=== PATIENT | female | born 1980 | race Two or more races ===

== ENCOUNTER 2019-01-05 08:31 | Outpatient (CLI) | payer OTHER ==
--- NOTE | 2019-01-06 12:52 | Ultrasound Report ---
Reason: Procedure Date: 01/05/2019 Accession Number: [id number] / [id number] Procedure: US - OB First Trimester CPT Code: FULL RESULT: EXAM: FIRST TRIMESTER OBSTETRIC ULTRASOUND (Less than 11 weeks) EXAM DATE: 01/05/2019 10:12 AM. CLINICAL HISTORY: . LMP: 11/11/2018. COMPARISONS: None. TECHNIQUE: Transabdominal and transvaginal ultrasound examination with static image documentation. CLINICAL DATES: EGA 7 weeks 6 days with LASHELL 08/18/2019 based on LMP. ASSESSMENT: Gestational Sac: Single intrauterine. Embryo: CRL (crown-rump length) 1.6 mm = 7 weeks 6 days with an LASHELL of 08/18/2019. Cardiac activity: 158 beats per minute. Yolk sac: 4.7 mm. Amniotic fluid: Not accurately assessed at this gestational age. Early placenta: Not visible at this gestational age. Other: No perigestational fluid collection demonstrated. MATERNAL STRUCTURES: Uterus: Anteverted. Unremarkable. Cervix: Closed. Right Ovary/Adnexa: The ovary measures 3.6 x 2.1 x 2.6 cm, volume 10.3 cc. Unremarkable. Left Ovary/Adnexa: The ovary measures 3.5 x 2.5 x 2.2 cm, volume 10 cc. 2.3 x 1.9 x 1.7 cm complex left ovarian cyst with debris and mild peripheral flow. No mural nodules or thickened septations. Free Fluid: None. Other: None. IMPRESSION: 1. Single viable intrauterine at EGA 7 weeks 6 days with LASHELL 08/18/2019 based on crown-rump length, which is concordant with clinical dates. 2. Assigned dating is LASHELL 08/18/2019 based on LMP. 3. No complications such as a subchorionic hemorrhage. 4. 2.3 cm complex left ovarian cyst most compatible with a corpus luteum. Otherwise, both ovaries and adnexa are normal. RADIA
== END 2019-01-05 08:32 | disposition home or self-care (01) ==
LOC: DI 08:31
PROVIDERS: ATTEND Nurse Practitioner Obstetrics & Gynecology
DX: Z32.01 Encounter for pregnancy test, result positive (principal); O34.81 Maternal care for other abnormalities of pelvic organs, first trimester; N83.292 Other ovarian cyst, left side; Z3A.01 Less than 8 weeks gestation of pregnancy
CPT/HCPCS: 76801

== ENCOUNTER 2019-01-21 08:00 | Outpatient (CLI) | payer OTHER ==
[2019-01-21 08:20] LABS: MUDS CUTOFF CONCENTRATIONS CUTOFF CONC BELOW:
[2019-01-21 08:26] LABS: BILIRUBIN,URINE NEGATIVE (NEGATIVE); GLUCOSE, URINE (UA) NEGATIVE (NEGATIVE); KETONES,URINE (UA) NEGATIVE (NEGATIVE); LEUKOCYTE ESTERASE, URINE NEGATIVE (NEGATIVE); NITRITE,URINE NEGATIVE (NEGATIVE); OCCULT BLOOD,URINE NEGATIVE (NEGATIVE); PROTEIN,URINE NEGATIVE (NEGATIVE); UROBILINOGEN,URINE 0.2 (NORMAL) E.U./dL (NORMAL)
[2019-01-21 08:27] LABS: BASOPHILS % (AUTO) 0.6 %; CLARITY,URINE CLEAR (CLEAR); EOSINOPHILS # (AUTO) 0.9 10^3/uL (0.0-0.7); EOSINOPHILS % (AUTO) 14.3 %; HGB - HEMOGLOBIN 13.3 g/dL (12.0-16.0); LYMPHOCYTES # (AUTO) 1.3 10^3/uL (1.5-3.5); LYMPHOCYTES % (AUTO) 20.9 %; MEAN CORPUSCULAR HEMOGLOBIN 30.6 pg (27.0-31.0); MEAN CORPUSCULAR HGB CONC 33.6 g/dL (32.0-36.0); MEAN CORPUSCULAR VOLUME 91.2 fL (81.0-99.0); MEAN PLATELET VOLUME 7.2 fL (7.9-10.8); MONOCYTES # (AUTO) 0.3 10^3/uL (0.0-1.0); MONOCYTES % (AUTO) 5.2 %; NEUTROPHILS # (AUTO) 3.6 10^3/uL (1.5-6.6); PLT - PLATELET COUNT 238 10^3/uL (130-450); RED BLOOD COUNT 4.36 10^6/uL (4.20-5.40); RED CELL DISTRIBUTION WIDTH 12.3 % (12.0-15.0)
[2019-01-21 08:40] LABS: AMPHETAMINE SCREEN,URINE NEGATIVE (NEGATIVE); BENZODIAZEPINES SCREEN, URINE NEGATIVE (NEGATIVE); COCAINE SCREEN URINE NEGATIVE (NEGATIVE); METHADONE SCREEN, URINE NEGATIVE (NEGATIVE); METHAMPHETAMINES SCREEN, URINE NEGATIVE (NEGATIVE); OPIATE SCREEN, URINE NEGATIVE (NEGATIVE); OXYCODONE SCREEN, URINE NEGATIVE (NEGATIVE); PROPOXYPHENE SCREEN, URINE NEGATIVE (NEGATIVE); TRICYCLIC ANTIDEPRESSANT,URINE NEGATIVE (NEGATIVE)
[2019-01-21 08:42] LABS: BACTERIA,URINE Rare /HPF (None Seen); RBC,URINE 0-5 /HPF (0-5); SQUAMOUS EPITHELIAL CELL,UR RARE Squamous (<= Few)
[2019-01-22 08:37] LABS: HEPATITIS B SURFACE ANTIGEN NON-REACTIVE (NON-REACTIVE)
[2019-01-22 13:16] LABS: HEPATITIS C ANTIBODY NON-REACTIVE (NON-REACTIVE)
[2019-01-22 13:47] LABS: HIV AG/AB 4TH GEN NON-REACTIVE (NON-REACTIVE)
== END 2019-01-21 08:01 | disposition home or self-care (01) ==
LOC: LAB 08:00
PROVIDERS: ATTEND Registered Nurse
DX: Z31.5 Encounter for procreative genetic counseling (principal); Z33.1 Pregnant state, incidental
CPT/HCPCS: 36415; 80306; 81001; 81599; 85025; 86592; 86762; 86803; 86850; 86900; 86901; 87086; 87340; 87389

== ENCOUNTER 2019-04-09 06:11 | Outpatient (CLI) | payer OTHER ==
[2019-04-09 07:17] LABS: BASOPHILS % (AUTO) 0.3 %; EOSINOPHILS # (AUTO) 0.2 10^3/uL (0.0-0.7); EOSINOPHILS % (AUTO) 3.2 %; HGB - HEMOGLOBIN 12.4 g/dL (12.0-16.0); LYMPHOCYTES # (AUTO) 1.1 10^3/uL (1.5-3.5); LYMPHOCYTES % (AUTO) 16.9 %; MEAN CORPUSCULAR HEMOGLOBIN 31.3 pg (27.0-31.0); MEAN CORPUSCULAR HGB CONC 34.1 g/dL (32.0-36.0); MEAN CORPUSCULAR VOLUME 91.9 fL (81.0-99.0); MEAN PLATELET VOLUME 9.2 fL (7.9-10.8); MONOCYTES # (AUTO) 0.5 10^3/uL (0.0-1.0); MONOCYTES % (AUTO) 7.5 %; NEUTROPHILS # (AUTO) 4.6 10^3/uL (1.5-6.6); NEUTROPHILS % (AUTO) 70.7 %; PLT - PLATELET COUNT 216 10^3/uL (130-450); RED BLOOD COUNT 3.96 10^6/uL (4.20-5.40); RED CELL DISTRIBUTION WIDTH 12.4 % (12.0-15.0); WHITE BLOOD COUNT 6.5 x10^3/uL (4.8-10.8)
[2019-04-09 07:32] LABS: ALBUMIN 3.1 g/dL (3.2-5.5); BILIRUBIN,TOTAL 0.6 mg/dL (0.2-1.0); CALCIUM 8.4 mg/dL (8.5-10.3); CREATININE 0.5 mg/dL (0.4-1.0); TOTAL PROTEIN 6.2 g/dL (6.7-8.2)
--- NOTE | 2019-04-09 11:59 | Ultrasound Report ---
Reason: RUQ pain Procedure Date: 04/09/2019 Accession Number: [id number] / [id number] Procedure: US - Abdomen Limited CPT Code: FULL RESULT: EXAM: ABDOMEN ULTRASOUND LIMITED, RUQ EXAM DATE: 04/09/2019 11:30 AM. CLINICAL HISTORY: RUQ pain. 21 weeks patient. COMPARISON: None. TECHNIQUE: Real-time scanning was performed with static images obtained. FINDINGS: Liver: The contour and echotexture are within normal limits. 12.8 cm. Main portal vein flow: Hepatopetal. Gallbladder: No stones, wall thickening, or sonographic Rodriguez's sign. Biliary System: CBD measures 4.7 mm. No intrahepatic or extrahepatic ductal dilatation. Other: There is mild ectatic right kidney without renal stone, filling defect or mass visualized. The right kidney measured 10.2 cm in length. No ascites is seen. IMPRESSION: 1. No cholelithiasis or cholecystitis. 2. Mild ectatic right renal pelvis without visualized stone or filling defect, probably secondary changes of the second trimester . RADIA
[2019-04-09 12:27] LABS: BILIRUBIN,URINE NEGATIVE (NEGATIVE); GLUCOSE, URINE (UA) NEGATIVE (NEGATIVE); KETONES,URINE (UA) NEGATIVE (NEGATIVE); LEUKOCYTE ESTERASE, URINE NEGATIVE (NEGATIVE); NITRITE,URINE NEGATIVE (NEGATIVE); OCCULT BLOOD,URINE NEGATIVE (NEGATIVE); PROTEIN,URINE NEGATIVE (NEGATIVE); UROBILINOGEN,URINE 0.2 (NORMAL) E.U./dL (NORMAL)
[2019-04-09 12:29] LABS: CLARITY,URINE CLEAR (CLEAR)
[2019-04-09] MEDS: oxyCODONE 5 MG TABLET PO ONE (12:46)
[2019-04-09 12:52] VITALS: BP 126/73
--- NOTE | 2019-04-09 14:20 | PREOP HISTORY & PHYSICAL ---
DATE OF SERVICE: 04/09/2019 Physician: Miguel Sterling MD IDENTIFICATION: Patient is a 39-year-old G1, P0 female with EDC of 18 August, making her 21.3 weeks . CHIEF COMPLAINT: Right flank pain. HISTORY OF PRESENT ILLNESS: Patient states at roughly 1 o'clock this morning, she was awakened with right-sided flank pain. She describes it as an 8-9/10. She states, with time, it has decreased to 7 /10. She states that she has been having some back pain for the last 3 days. She denies any pain or burning on urination. She denies radiation. She denies any trauma at this point. She has no histo ry of any kidney stones or kidney infections. She had a UTI roughly 5 years ago. She has had a norm al so far. PAST MEDICAL HISTORY: None. PAST SURGICAL HISTORY: None. ALLERGIES: NONE KNOWN. CURRENT MEDICATIONS: vitamins. HABITS: Patient denies use of alcohol, tobacco, street or addictive drugs, or tetrahydrocannabinol. SOCIAL HISTORY: Patient is to an active duty [place]. She works as a foundry technician. FAMILY HISTORY: Positive for father who at a young age secondary to ethanol abuse. PHYSICAL EXAMINATION GENERAL: Well-developed, well-nourished female, in a moderate to mild amount of distress. VITAL SIGNS: Temperature is 37, blood pressure 128/81, pulse was 70, respirations 16. HEENT: Pupils are equal and round. Extraocular muscles are intact. Thyroid is not palpably enlarge d. HEART: Regular rate and rhythm without murmurs. LUNGS: Lung king are clear without rales or wheezes. BACK: Patient has right flank tenderness, which duplicates the pain she is complaining of. DIAGNOSTIC DATA: Her ultrasound showed a normal gallbladder. There is some mild dilatation of the r ight kidney; however, there is no evidence of any kidney stones. CBC shows a white count of 6.5, hemoglobin was 12.4, hematocrit was 36.4, platelets were 216. Electr olytes were all within normal limits. Her urinalysis did not show any leukocytes or RBCs in the urin e. IMPRESSION AND PLAN: A 39-year-old G1, P0, female, 21.3 weeks, probable renal lithiasis versus renal colic. At this point, with negative urine as well as labs, I feel that the administration of oxycod one 5-10 mg as needed every 6 hours. She is also to strain her urine, sleep on her left-hand side to see if this does not help with her colic. 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 She is also told to return, should her symptoms become worse. TD: 04/09/2019 13:08
--- NOTE | 2019-04-10 18:03 | PROVIDER PROGRESS NOTE ---
- HPI Chief Complaint: Other (Ms Palma is a 39 yo at 21w2d who presented to the ED with chest/abd pain. She had been cleared for cardiac concerns and PE. She reports midepigastric/substernal pain rated 6/10 at rest and 8/10 when palpated. Pain starts at midepigastric area and radiates behind her right breast through to her back. Some nausea when area is palpated but no vomiting. Minimal to no improvement with GI cocktail. No CTX/VB/LOF. Endorses FM) Current : Current EDU 08/18/19 Gestation 21 Weeks and 2 Days 1 Para 0 Vital Signs Temperature 98.6 F 04/09/19 06:15 Heart Rate 70 04/09/19 06:15 Respiratory Rate 16 04/09/19 06:15 Blood Pressure 128/81 H 04/09/19 06:15 O2 Saturation 100 04/09/19 06:15 Temperature 98.4 F 04/09/19 11:27 Heart Rate 71 04/09/19 11:27 Respiratory Rate 20 04/09/19 12:51 Blood Pressure 126/73 04/09/19 12:51 O2 Saturation 98 04/09/19 12:51 - Exam GEN: NAD and no obvious discomfort CV:RRR RESP: CTAB ABD: gravid. Palpable mass that recedes with pressure above uterine fundus. Pt reports pain worsens with palpation/no change in demeanor. No tenderness in RUQ. Uterine fundus soft and non-tender. EXT: WWP, no BLE edema FHT wnl - Procedures Service Date of procedure: 04/09/19 Findings: Formal abdominal us ordered. US of gallbladder WNL. Right kidney with some dilation , but no stones noted for either. UA negative. - Plan Plan: Medicated with Oxycodone 10 mg PO. Given a strainer to strain urine. Instruct ed to [place] and sooner if the pain is not improved. Able to tolerate eating regular food after US, but does not have much appetite. Discharge instructions given. Discharged to home.
== END 2019-04-09 13:45 | disposition home or self-care (01) ==
LOC: WFO 06:11 → FBP 06:14 → WFO 13:45
PROVIDERS: ATTEND Obstetrics & Gynecology
DX: O99.89 Other specified diseases and conditions complicating pregnancy, childbirth and the puerperium (principal); N28.89 Other specified disorders of kidney and ureter; R10.13 Epigastric pain; R07.2 Precordial pain; O09.513 Supervision of elderly primigravida, third trimester; Z87.440 Personal history of urinary (tract) infections; Z3A.21 21 weeks gestation of pregnancy
CPT/HCPCS: 36415; 76705; 80053; 81003; 85025; 99213; A9270; 81001; 87086

== ENCOUNTER 2019-04-10 19:28 | Observation (INO) | payer OTHER ==
[2019-04-10 20:18] LABS: BASOPHILS % (AUTO) 0.2 %; EOSINOPHILS # (AUTO) 0.1 10^3/uL (0.0-0.7); EOSINOPHILS % (AUTO) 0.6 %; HGB - HEMOGLOBIN 12.7 g/dL (12.0-16.0); LYMPHOCYTES # (AUTO) 0.9 10^3/uL (1.5-3.5); LYMPHOCYTES % (AUTO) 8.9 %; MEAN CORPUSCULAR HEMOGLOBIN 30.5 pg (27.0-31.0); MEAN CORPUSCULAR HGB CONC 32.7 g/dL (32.0-36.0); MEAN PLATELET VOLUME 9.1 fL (7.9-10.8); MONOCYTES # (AUTO) 0.6 10^3/uL (0.0-1.0); NEUTROPHILS # (AUTO) 8.3 10^3/uL (1.5-6.6); NEUTROPHILS % (AUTO) 83.7 %; PLT - PLATELET COUNT 224 10^3/uL (130-450); RED BLOOD COUNT 4.17 10^6/uL (4.20-5.40); RED CELL DISTRIBUTION WIDTH 12.8 % (12.0-15.0)
[2019-04-10 20:21] LABS: BILIRUBIN,URINE NEGATIVE (NEGATIVE); CLARITY,URINE CLEAR (CLEAR); GLUCOSE, URINE (UA) NEGATIVE (NEGATIVE); KETONES,URINE (UA) NEGATIVE (NEGATIVE); LEUKOCYTE ESTERASE, URINE NEGATIVE (NEGATIVE); NITRITE,URINE NEGATIVE (NEGATIVE); OCCULT BLOOD,URINE LARGE (NEGATIVE); PH,URINE 6.5 PH (5.0-7.5); PROTEIN,URINE 30 mg/dL (NEGATIVE); UROBILINOGEN,URINE 0.2 (NORMAL) E.U./dL (NORMAL)
[2019-04-10 20:30] LABS: ALBUMIN 3.4 g/dL (3.2-5.5); ALBUMIN/GLOBULIN RATIO 0.9 (1.0-2.2); BILIRUBIN,TOTAL 0.8 mg/dL (0.2-1.0); CREATININE 0.6 mg/dL (0.4-1.0); TOTAL PROTEIN 7.1 g/dL (6.7-8.2)
[2019-04-10 20:32] LABS: BACTERIA,URINE None Seen /HPF (None Seen); SQUAMOUS EPITHELIAL CELL,UR RARE Squamous (<= Few)
[2019-04-10] MEDS ORDERED: fentaNYL 100 MCG/2 ML VIAL IVP SCH (21:00)
[2019-04-10] MEDS ORDERED: fentaNYL 100 MCG/2 ML VIAL ONE (21:13)
[2019-04-10] MEDS ORDERED: LACTATED RINGERS 1,000 ML IV ONE (21:20)
[2019-04-10] MEDS ORDERED: LACTATED RINGERS 1,000 ML IV STA (21:39)
[2019-04-10] MEDS ORDERED: HYDROmorphone PCA 20MG/100ML IV PRN (21:54)
[2019-04-10] MEDS ORDERED: fentaNYL 100 MCG/2 ML VIAL IVP PRN (21:59)
--- NOTE | 2019-04-11 00:16 | PREOP HISTORY & PHYSICAL ---
DATE OF SERVICE: 04/10/2019 Physician: Miguel Sterling MD IDENTIFICATION: The patient is a 39-year-old G1, P0, female whose EDC is 08/18/2019. This makes her 21 and 4 weeks gestation. CHIEF COMPLAINT: Right flank pain. HISTORY OF PRESENT ILLNESS: The patient was seen on 04/09/2019 for right flank pain. It started 1 o 'clock that morning. She was awakened suddenly. She describes the pain as 9/10. She was seen and e valuated here, at which time she was diagnosed with either a renal lithiasis or renal colic. Her uri ne was clear and had no RBCs or WBCs. The patient was sent home at that time on oxycodone for pain c ontrol. She has been taking 5-10 mg as needed for pain. The pain has continued to persist and at th is particular time has difficulty controlling her pain at home. She called the clinic at [facility], which they referred her to come to the ED here for evaluation. She has continued to have flank pain and i s unremitting at this time. PAST MEDICAL HISTORY: Renal lithiasis. PAST SURGICAL HISTORY: None. ALLERGIES: NONE KNOWN. CURRENT MEDICATIONS 1. vitamins. 2. Oxycodone. HABITS: The patient denies use of alcohol, tobacco or street or addictive drugs or tetrahydrocannabi nol. SOCIAL HISTORY: The patient is to an active duty [place]. She works as a concierge receptionist. FAMILY HISTORY: Positive for a father who secondary to ethanol abuse. PHYSICAL EXAMINATION GENERAL: Well-developed, well-nourished female. She is in moderate distress at this time. VITAL SIGNS: Normal. She is afebrile. HEENT: Pupils are equal, round. Extraocular muscles are intact. Mouth is clear. NECK: Thyroid is not palpably enlarged. HEART: Regular rate and rhythm without murmurs. LUNGS: Lung king are clear without rales or wheezes. BACK: There is persistent right flank tenderness, duplicating the pain she is complaining of, simila r to the pain she was experiencing on her visit yesterday. LABORATORY DATA: At this time, she is noted to have RBCs in the urine without WBCs. Her white count is normal, hemoglobin is normal and her electrolytes are normal. She does not show any elevation of her creatinine at this point. Currently, an ultrasound is pending. IMPRESSION 1. A 39-year-old G1, P0, female at 21.4 weeks. 2. Right renal lithiasis. PLAN: Since patient is not being able to control her pain at home, we will admit for IV pain medicat ion. We will administer IV fluids to hope increase her renal output to try and watch the kidney ston e down. Should she not be successful, the option of referring her out would be entertained. TD: 04/10/2019 21:38
--- NOTE | 2019-04-11 03:55 | Ultrasound Report ---
Reason: rt flank pain Procedure Date: 04/11/2019 Accession Number: [id number] / [id number] Procedure: US - Retroperitoneal Limited CPT Code: FULL RESULT: EXAM: RIGHT RENAL ULTRASOUND EXAM DATE: 04/11/2019 01:02 AM. CLINICAL HISTORY: Rt flank pain. COMPARISON: ABDOMEN LIMITED 04/09/2019 10:57 AM. TECHNIQUE: Real-time scanning was performed with static images obtained. FINDINGS: Right Kidney: 10.8 cm. Mild hydronephrosis. Trace amount of perinephric fluid. No mass or stone identified. Bladder: Not imaged. Other: None. IMPRESSION: 1. Mild right hydronephrosis. 2. Small amount of perinephric fluid. RADIA
[2019-04-11 08:47] LABS: BILIRUBIN,URINE NEGATIVE (NEGATIVE); GLUCOSE, URINE (UA) NEGATIVE (NEGATIVE); KETONES,URINE (UA) NEGATIVE (NEGATIVE); LEUKOCYTE ESTERASE, URINE NEGATIVE (NEGATIVE); NITRITE,URINE NEGATIVE (NEGATIVE); OCCULT BLOOD,URINE LARGE (NEGATIVE); PROTEIN,URINE NEGATIVE (NEGATIVE); UROBILINOGEN,URINE 0.2 (NORMAL) E.U./dL (NORMAL)
[2019-04-11 08:48] LABS: CLARITY,URINE CLEAR (CLEAR)
--- NOTE | 2019-04-11 08:48 | PROVIDER PROGRESS NOTE ---
Subjective - Prog Note Date Prog Note Date: 04/11/19 Prog Note Time: 08:46 - Subjective Pt reports feeling: Improved (Pain is 3/10. notes painmoving down.) Objective - Vital Signs/Intake & Output Reviewed Vital Signs: Yes Vital Signs: Vital Signs x48h Temp Pulse Resp BP Pulse Ox 04/11/19 08:43 37.0 C 87 18 106/63 96 04/11/19 05:52 16 04/11/19 04:00 18 04/11/19 03:00 16 04/11/19 02:00 16 04/11/19 01:31 37 C 80 16 122/72 97 04/11/19 01:00 16 Intake & Output: Intake & Output 04/08/19 04/09/19 04/10/19 04/11/19 23:59 23:59 23:59 23:59 Intake Total 1000 Balance 1000 - Objective General Appearance: positive: No acute distress (notes good FM) Respiratory: positive: Chest non-tender, No respiratory distress, Breath sounds nml Cardiovascular: positive: Regular rate & rhythm, No murmur, No gallop Abdomen: positive: Non-tender, No organomegaly, Mass (Uterus) Back: positive: CVA tenderness (R) Skin: positive: Color nml, No rash, Warm, Dry Neurologic/Psychiatric: positive: Oriented x3 - Lab Results Fish Bones: 04/10/19 20:13 04/10/19 20:13 Other Labs: Lab Results x24hrs 04/10/19 04/10/19 04/10/19 Range/Units 20:13 20:13 20:11 WBC 10.0 (4.8-10.8) x10^3/uL RBC 4.17 L (4.20-5.40) 10^6/uL Hgb 12.7 (12.0-16.0) g/dL Hct 38.8 (37.0-47.0) % MCV 93.0 (81.0-99.0) fL MCH 30.5 (27.0-31.0) pg MCHC 32.7 (32.0-36.0) g/dL RDW 12.8 (12.0-15.0) % Plt Count 224 (130-450) 10^3/uL MPV 9.1 (7.9-10.8) fL Neut # (Auto) 8.3 H (1.5-6.6) 10^3/uL Lymph # (Auto) 0.9 L (1.5-3.5) 10^3/uL [place] # (Auto) 0.6 (0.0-1.0) 10^3/uL Eos # (Auto) 0.1 (0.0-0.7) 10^3/uL Baso # (Auto) 0.0 (0.0-0.1) 10^3/uL Absolute Nucleated RBC 0.00 x10^3/uL Nucleated RBC % 0.0 /100WBC Sodium 136 (135-145) mmol/L Potassium 3.8 (3.5-5.0) mmol/L Chloride 102 (101-111) mmol/L Carbon Dioxide 24 (21-32) mmol/L Anion Gap 10.0 (6-13) BUN 8 (6-20) mg/dL Creatinine 0.6 (0.4-1.0) mg/dL Estimated GFR (MDRD) 111 (>89) Glucose 114 H (70-100) mg/dL Calcium 9.0 (8.5-10.3) mg/dL Total Bilirubin 0.8 (0.2-1.0) mg/dL AST 25 (10-42) IU/L ALT 27 (10-60) IU/L Alkaline Phosphatase 48 (42-121) IU/L Total Protein 7.1 (6.7-8.2) g/dL Albumin 3.4 (3.2-5.5) g/dL Globulin 3.7 (2.1-4.2) g/dL Albumin/Globulin Ratio 0.9 L (1.0-2.2) Urine Color YELLOW Urine Clarity CLEAR (CLEAR) Urine pH 6.5 (5.0-7.5) PH Ur Specific [place] <=1.005 (1.002-1.030) Urine Protein 30 H (NEGATIVE) mg/dL Urine Glucose (UA) NEGATIVE (NEGATIVE) mg/dL Urine Ketones NEGATIVE (NEGATIVE) mg/dL Urine Occult Blood LARGE H (NEGATIVE) Urine Nitrite NEGATIVE (NEGATIVE) Urine Bilirubin NEGATIVE (NEGATIVE) Urine Urobilinogen 0.2 (NORMAL) (NORMAL) E.U./dL Ur Leukocyte Esterase NEGATIVE (NEGATIVE) Urine RBC 11-25 H (0-5) /HPF Urine WBC 0-3 (0-5) /HPF Ur Squamous Epith Cells RARE Squamous (<= Few) Urine Bacteria None Seen (None Seen) /HPF Ur Microscopic Review INDICATED Urine Culture Comments NOT INDICATED - Diagnostic Imaging Diagnostic Imaging Comments: no stone seen. mild [place] Assessment/Plan - Problem List (1) 21 weeks gestation of Impression: FM noted (2) Renal lithiasis Impression: Stone appears to be moving
[2019-04-11] MEDS: LACTATED RINGERS 1,000 ML IV SCH ×2 (08:52→17:06)
[2019-04-11] MEDS: DOCUSATE SODIUM 100 MG CAPSULE PO SCH (08:52)
[2019-04-11 08:59] LABS: BACTERIA,URINE Rare /HPF (None Seen); RBC,URINE 0-5 /HPF (0-5); SQUAMOUS EPITHELIAL CELL,UR MOD Squamous (<= Few)
[2019-04-11] MEDS ORDERED: PRENATAL VITAMIN TABLET PO SCH (09:00)
[2019-04-11] MEDS: TAMSULOSIN 0.4 MG CAPSULE PO SCH (17:02)
[2019-04-11] MEDS: oxyCODONE 5 MG TABLET PO PRN ×2 (17:03→21:07)
[2019-04-11] MEDS ORDERED: SODIUM CHLORIDE FLUSH 0.9% 10 ML SYRINGE ONE (20:04)
[2019-04-11] MEDS ORDERED: ACETAMINOPHEN 500 MG TABLET PO PRN (21:08)
[2019-04-12] MEDS: oxyCODONE 5 MG TABLET PO PRN ×3 (01:04→09:51)
[2019-04-12] MEDS: LACTATED RINGERS 1,000 ML IV SCH (01:05)
[2019-04-12 05:14] VITALS: BP 97/61
--- NOTE | 2019-04-12 09:03 | PROVIDER PROGRESS NOTE ---
Subjective - Prog Note Date Prog Note Date: 04/12/19 Prog Note Time: 09:03 - Subjective Pt reports feeling: Improved (pt notes grullon -12/19. Using 10 mg oxycodone with adiqut effect. has felt christ pain in the RLQ. pain still in the back.) Objective - Vital Signs/Intake & Output Reviewed Vital Signs: Yes Vital Signs: Vital Signs x48h Temp Pulse Pulse Resp BP Pulse Ox 04/12/19 08:23 37.1 C 95 95 18 99 04/12/19 05:13 36.7 C 86 16 97/61 99 04/12/19 01:08 94/60 Intake & Output: Intake & Output 04/09/19 04/10/19 04/11/19 04/12/19 23:59 23:59 23:59 23:59 Intake Total 2240 997.917 Balance 2240 997.917 - Objective General Appearance: positive: No acute distress, Alert Respiratory: positive: Chest non-tender, No respiratory distress, Breath sounds nml Cardiovascular: positive: Regular rate & rhythm, No murmur, No gallop Abdomen: positive: Non-tender Back: positive: CVA tenderness (R) Extremities: negative: Calf tenderness, Rosi's sign/cords - Lab Results Fish Bones: 04/10/19 20:13 04/10/19 20:13 Other Labs: Lab Results x24hrs 04/11/19 Range/Units 08:20 Urine Color YELLOW Urine Clarity CLEAR (CLEAR) Urine pH 6.0 (5.0-7.5) PH Ur Specific [place] <=1.005 (1.002-1.030) Urine Protein NEGATIVE (NEGATIVE) mg/dL Urine Glucose (UA) NEGATIVE (NEGATIVE) mg/dL Urine Ketones NEGATIVE (NEGATIVE) mg/dL Urine Occult Blood LARGE H (NEGATIVE) Urine Nitrite NEGATIVE (NEGATIVE) Urine Bilirubin NEGATIVE (NEGATIVE) Urine Urobilinogen 0.2 (NORMAL) (NORMAL) E.U./dL Ur Leukocyte Esterase NEGATIVE (NEGATIVE) Urine RBC 0-5 (0-5) /HPF Urine WBC 4-5 (0-5) /HPF Ur Squamous Epith Cells MOD Squamous H (<= Few) Urine Bacteria Rare (None Seen) /HPF Assessment/Plan - Problem List (1) 21 weeks gestation of Impression: FM noted. FHT + (2) Renal lithiasis Impression: adiqut pain control. stone moving Alow to go home Discharge meds Oxycodone 10 mg #20 flowmax 0.4 mg daily Pt told to return if nessary.
[2019-04-12] MEDS: DOCUSATE SODIUM 100 MG CAPSULE PO SCH (09:51)
[2019-04-12] MEDS: TAMSULOSIN 0.4 MG CAPSULE PO SCH (09:51)
== END 2019-04-12 10:05 | disposition home or self-care (01) ==
LOC: WFO 19:28 → FBP 19:41 → WFO 04-11 09:23 → FBP 04-11 09:24
PROVIDERS: ADMIT Obstetrics & Gynecology; ATTEND Obstetrics & Gynecology
DX: O99.89 Other specified diseases and conditions complicating pregnancy, childbirth and the puerperium (principal); N13.2 Hydronephrosis with renal and ureteral calculous obstruction; Z3A.21 21 weeks gestation of pregnancy
CPT/HCPCS: 36415; 76775; 80053; 81001; 85025; 99212; A9270; G0378; G0379; J7120; 81003; 87086

== ENCOUNTER 2019-05-28 10:37 | Emergency (ER) | payer OTHER ==
[2019-05-28 11:47] LABS: BASOPHILS % (AUTO) 0.2 %; EOSINOPHILS # (AUTO) 0.1 10^3/uL (0.0-0.7); EOSINOPHILS % (AUTO) 1.5 %; HGB - HEMOGLOBIN 11.2 g/dL (12.0-16.0); LYMPHOCYTES # (AUTO) 1.2 10^3/uL (1.5-3.5); MEAN CORPUSCULAR HEMOGLOBIN 30.6 pg (27.0-31.0); MEAN CORPUSCULAR HGB CONC 33.1 g/dL (32.0-36.0); MEAN CORPUSCULAR VOLUME 92.3 fL (81.0-99.0); MEAN PLATELET VOLUME 9.2 fL (7.9-10.8); MONOCYTES # (AUTO) 0.5 10^3/uL (0.0-1.0); NEUTROPHILS # (AUTO) 4.6 10^3/uL (1.5-6.6); NEUTROPHILS % (AUTO) 71.4 %; PLT - PLATELET COUNT 188 10^3/uL (130-450); RED BLOOD COUNT 3.66 10^6/uL (4.20-5.40); RED CELL DISTRIBUTION WIDTH 12.5 % (12.0-15.0); WHITE BLOOD COUNT 6.5 x10^3/uL (4.8-10.8)
[2019-05-28 12:02] LABS: ALBUMIN 2.7 g/dL (3.2-5.5); ALBUMIN/GLOBULIN RATIO 0.9 (1.0-2.2); ALKALINE PHOSPHATASE 51 IU/L (42-121); ALT ALANINE AMINOTRANSFERASE 13 IU/L (10-60); AST ASPARTATE AMINOTRANSFERASE 17 IU/L (10-42); BILIRUBIN,TOTAL 0.5 mg/dL (0.2-1.0); BUN - BLOOD UREA NITROGEN 8 mg/dL (6-20); CALCIUM 7.9 mg/dL (8.5-10.3); CARBON DIOXIDE - CO2 23 mmol/L (21-32); CHLORIDE 108 mmol/L (101-111); CREATININE 0.4 mg/dL (0.4-1.0); GFR - MDRD 178 (>89); GLUCOSE 75 mg/dL (70-100); LIPASE 25 U/L (22-51); MAGNESIUM 1.7 mg/dL (1.7-2.8); SODIUM 140 mmol/L (135-145); TOTAL PROTEIN 5.8 g/dL (6.7-8.2)
--- NOTE | 2019-05-28 12:10 | ED Physician Documentation ---
History of Present Illness - Stated complaint Stated Complaint: HIGH BLOOD SUGAR - Chief complaint Chief Complaint: General - History obtained from History obtained from: Patient (G1 at 28 weeks, she was borderline on glucose tolerance testing and is checking her blood sugars at home. Last night it was 128 after eating. This morning it was 300 and then "high." Which was corroborated [place] the [place] [facility]. She was sent here for further evaluation and treatment. On the way here her fingerstick was in the 70s which was repeated here in the 70s again.) Review of Systems Constitutional: denies: Fever, Chills Cardiac: reports: Reviewed and negative Respiratory: reports: Reviewed and negative GI: reports: Reviewed and negative PD PAST MEDICAL HISTORY - Past Medical History Cardiovascular: None Respiratory: None Neuro: None Endocrine/Autoimmune: None GI: None MEAT STOCK CLERK: None : Kidney stones HEENT: None Psych: None Musculoskeletal: None Derm: None - Past Surgical History Past Surgical History: No - Allergies Allergies/Adverse Reactions: Allergies Allergy/AdvReac Type Severity Reaction Status Date / Time No Known Drug Allergies Allergy Verified 04/10/19 22:37 - Social History Does the pt smoke?: No Smoking Status: Never smoker PD ED PE NORMAL - Vitals Vital signs reviewed: Yes - General General: Alert and oriented X 3, No acute distress - Back Back: No CVA TTP, No spinal TTP - Derm Derm: Normal color, Warm and dry - Neuro Neuro: Alert and oriented X 3, Normal speech Results - Vitals Vitals: Vital Signs - 24 hr 05/28/19 05/28/19 10:38 11:18 Temperature 36.4 C L Heart Rate 81 Respiratory 20 18 Rate Blood Pressure 121/67 110/67 O2 Saturation 100 98 Oxygen O2 Source Room air - Labs Labs: Laboratory Tests 05/28/19 05/28/19 05/28/19 10:50 11:41 11:41 WBC 6.5 RBC 3.66 L Hgb 11.2 L Hct 33.8 L MCV 92.3 MCH 30.6 MCHC 33.1 RDW 12.5 Plt Count 188 MPV 9.2 Neut # (Auto) 4.6 Lymph # (Auto) 1.2 L [place] # (Auto) 0.5 Eos # (Auto) 0.1 Baso # (Auto) 0.0 Absolute Nucleated RBC 0.00 Nucleated RBC % 0.0 Sodium 140 Potassium 3.7 Chloride 108 Carbon Dioxide 23 Anion Gap 9.0 BUN 8 Creatinine 0.4 Estimated GFR (MDRD) 178 Glucose 75 Calcium 7.9 L Magnesium 1.7 Total Bilirubin 0.5 AST 17 ALT 13 Alkaline Phosphatase 51 Total Protein 5.8 L Albumin 2.7 L Globulin 3.1 Albumin/Globulin Ratio 0.9 L Lipase 25 Urine Color YELLOW Urine Clarity CLEAR Urine pH 6.0 Ur Specific [place] 1.010 Urine Protein NEGATIVE Urine Glucose (UA) NEGATIVE Urine Ketones NEGATIVE Urine Occult Blood NEGATIVE Urine Nitrite NEGATIVE Urine Bilirubin NEGATIVE Urine Urobilinogen 0.2 (NORMAL) Ur Leukocyte Esterase NEGATIVE Ur Microscopic Review NOT INDICATED Urine Culture Comments NOT INDICATED Serum Ketones NEGATIVE PD MEDICAL DECISION MAKING - ED course ED course: 39-year-old woman presents with high blood sugars on fingersticks prior to arrival which was not corroborated here. Given the lack of glucosuria, these must be spurious. Departure - Departure Disposition: 01 Home, Self Care Clinical Impression: Hyperglycemia Condition: Good Record reviewed to determine appropriate education?: Yes Comments: Your blood sugar on our labs and your urinalysis are with high glucose. Return as needed, follow-up with your OB.
[2019-05-28 12:16] LABS: BILIRUBIN,URINE NEGATIVE (NEGATIVE); GLUCOSE, URINE (UA) NEGATIVE (NEGATIVE); KETONES,URINE (UA) NEGATIVE (NEGATIVE); LEUKOCYTE ESTERASE, URINE NEGATIVE (NEGATIVE); NITRITE,URINE NEGATIVE (NEGATIVE); OCCULT BLOOD,URINE NEGATIVE (NEGATIVE); PROTEIN,URINE NEGATIVE (NEGATIVE); UROBILINOGEN,URINE 0.2 (NORMAL) E.U./dL (NORMAL)
[2019-05-28 12:18] LABS: CLARITY,URINE CLEAR (CLEAR)
[2019-05-28 12:23] LABS: KETONES, SERUM (ACETEST) NEGATIVE (NEGATIVE)
[2019-05-28 12:42] VITALS: BP 106/71
== END 2019-05-28 12:43 | disposition home or self-care (01) ==
LOC: EDUNIT# → ED 10:37
DX: O99.89 Other specified diseases and conditions complicating pregnancy, childbirth and the puerperium (principal); R73.9 Hyperglycemia, unspecified; Z3A.28 28 weeks gestation of pregnancy
CPT/HCPCS: 36415; 80053; 81001; 81003; 82009; 83690; 83735; 85025; 87086; 99283

== ENCOUNTER 2019-07-09 08:27 | Outpatient (CLI) | payer OTHER ==
--- NOTE | 2019-07-09 13:05 | Ultrasound Report ---
Reason: GESTATIONAL DIABETES Procedure Date: 07/09/2019 Accession Number: [id number] / [id number] Procedure: US - OB F/U or Repeat CPT Code: FULL RESULT: EXAM: FOLLOW-UP OBSTETRICAL ULTRASOUND EXAM DATE: 07/09/2019 09:46 AM. CLINICAL HISTORY: GESTATIONAL DIABETES. COMPARISON: OB FIRST TRIMESTER 01/05/2019 9:25 AM. TECHNIQUE: Real-time sonographic evaluation of the fetus performed by the home care giver. Multiple cash application representative static images were saved for review. DATING: Established EGA 34 weeks 2 days with LASHELL 08/18/2019 based on LMP. EGA 35 weeks 3 days with LASHELL 08/10/2019 based on the current ultrasound. GENERAL EVALUATION [place] . Cardiac activity: 127 bpm. movement: Present Presentation: Cephalic. Placenta: Anterior position. Amniotic fluid: Normal. JUANA 19.4 cm. MVP 6.9 cm. BIOMETRY Bi-Parietal Diameter (BPD): 9.3 cm, 37 weeks 2 days Head Circumference (HC): 32.1 cm, 36 weeks 2 days Abdominal Circumference (AC): 30.5 cm, 34 weeks 3 days Femur Length (FL): 6.4 cm, 33 weeks 3 days Estimated Weight: 2489 g, 56th percentile for 34 weeks 2 days. ANATOMY Not assessed today. MATERNAL STRUCTURES Cervix obscured by head. IMPRESSION: 1. [place] live intrauterine with gestational age 34 weeks 2 days based on LMP. 2. Estimated weight is within expected limits for assigned dating. 3. Normal interval growth compared to 01/05/2019. RADIA
== END 2019-07-09 08:28 | disposition home or self-care (01) ==
LOC: DI 08:27
PROVIDERS: ATTEND Obstetrics & Gynecology
DX: O24.419 Gestational diabetes mellitus in pregnancy, unspecified control (principal); Z3A.34 34 weeks gestation of pregnancy
CPT/HCPCS: 76816

== ENCOUNTER 2019-07-16 08:00 | Outpatient (CLI) | payer OTHER ==
[2019-07-16 18:44] LABS: TRICHOMONAS VAGINALIS DNA NEGATIVE (NEGATIVE)
== END 2019-07-16 23:59 | disposition home or self-care (01) ==
LOC: LAB.R 08:00
PROVIDERS: ATTEND Obstetrics & Gynecology
DX: Z36.85 Encounter for antenatal screening for Streptococcus B (principal); Z11.3 Encounter for screening for infections with a predominantly sexual mode of transmission
CPT/HCPCS: 87491; 87591; 87661; 87797

== ENCOUNTER 2019-07-16 09:58 | Outpatient (CLI) | payer OTHER ==
[2019-07-16 10:24] VITALS: BP 103/67
--- NOTE | 2019-07-16 12:37 | PROCEDURE REPORT ---
- HPI Diagnosis/Indication for NST: Decreased movement Current EDU 08/18/19 Gestation 35 Weeks and 2 Days 1 Para 0 Vital Signs Temperature 36.8 C 07/16/19 10:12 Heart Rate 80 07/16/19 10:12 Respiratory Rate 16 07/16/19 10:12 Blood Pressure 103/67 07/16/19 10:12 O2 Saturation 100 07/16/19 10:12 Temperature 36.8 C 07/16/19 10:12 Heart Rate 80 07/16/19 10:12 Respiratory Rate 16 07/16/19 10:12 Blood Pressure 103/67 07/16/19 10:12 O2 Saturation 100 07/16/19 10:12 - NST Procedure NST Procedure Start Date 07/16/19 Start Time 10:04 Stop Time 10:33 Vibroacoustic Stimulation Used No Patient States Movement Yes - Results and Plan Findings/Impression: Pt noted decreased FM. US showed 56%tile with 19 cm Reactive NST
== END 2019-07-16 10:40 | disposition home or self-care (01) ==
LOC: WFO 09:58 → FBP 10:01 → WFO 10:40
PROVIDERS: ATTEND Obstetrics & Gynecology
DX: O36.8130 Decreased fetal movements, third trimester, not applicable or unspecified (principal); O24.419 Gestational diabetes mellitus in pregnancy, unspecified control; O09.513 Supervision of elderly primigravida, third trimester; Z3A.35 35 weeks gestation of pregnancy
CPT/HCPCS: 59025

== ENCOUNTER 2019-08-13 03:18 | Inpatient (IN) | payer OTHER ==
[2019-08-13 04:08] LABS: RUPTURE OF MEMBRANES PLUS POSITIVE (NEGATIVE)
[2019-08-13] MEDS ORDERED: SODIUM CHLORIDE FLUSH 0.9% 10 ML SYRINGE IVP PRN (04:15)
[2019-08-13 05:42] LABS: BASOPHILS % (AUTO) 0.3 %; EOSINOPHILS # (AUTO) 0.1 10^3/uL (0.0-0.7); EOSINOPHILS % (AUTO) 1.2 %; HGB - HEMOGLOBIN 12.5 g/dL (12.0-16.0); LYMPHOCYTES % (AUTO) 27.5 %; MEAN CORPUSCULAR HEMOGLOBIN 30.4 pg (27.0-31.0); MEAN CORPUSCULAR HGB CONC 33.8 g/dL (32.0-36.0); MEAN PLATELET VOLUME 11.9 fL (7.9-10.8); MONOCYTES # (AUTO) 0.7 10^3/uL (0.0-1.0); MONOCYTES % (AUTO) 8.9 %; NEUTROPHILS # (AUTO) 4.5 10^3/uL (1.5-6.6); NEUTROPHILS % (AUTO) 61.3 %; PLT - PLATELET COUNT 270 10^3/uL (130-450); RED BLOOD COUNT 4.11 10^6/uL (4.20-5.40); RED CELL DISTRIBUTION WIDTH 13.2 % (12.0-15.0); WHITE BLOOD COUNT 7.3 x10^3/uL (4.8-10.8)
--- NOTE | 2019-08-13 06:39 | HISTORY & PHYSICAL EXAMINATION ---
Admit History - Visit Reason Visit Reason: Membranes rupture - : 1 Parity: 0 Care: positive: Other Risk/History: positive: None Complications This : positive: None Smoking Status: Never smoker - Mother's Labs Mother's Blood Type: positive: O Mother's RH: positive: Positive GBS: positive: Group B Step Negative Rubella Status: positive: Equivocal (The patient came to OB complaining of rupture of membranes. She is a well-developed, well-nourished, 39-year-old female. She is a 1 para 0 with an LASHELL of 08/18/2019 making her [id number] weeks 2 days gestation today. She noted the onset of rupture of membranes at approximately 0130 hrs. this morning. She described the fluid is clear. She denied any odors. She denies any vaginal bleeding. She states she has some period like cramping but nothing more than that. She came to OB for evaluation. Her cervix is found to be 1 cm dilated 60% effaced. Test were positive for rupture of membranes. The patient was admitted after that. Her course is unremarkable. She is oh positive, rubella equivocal and GBS negative. She denies any history of pelvic inflammatory disease, gonorrhea, syphilis, chlamydia, herpes, recurrent vaginal infections, trichomonas or abnormal Pap smears.She does plan on breast-feeding.) Meds/Allgy - Allergies Allergies/Adverse Reactions: Allergies Allergy/AdvReac Type Severity Reaction Status Date / Time No Known Drug Allergies Allergy Verified 04/10/19 22:37 Review of Systems - Constitutional Constitutional: denies: Fatigue, Fever, Chills, Malaise, Poor appetite - Eyes Eyes: denies: Pain, Irritation, Amaurosis, Blurred vision, Spots in vision - Ears, Nose & Throat Ears, Nose & Throat: denies: Ear pain, Hearing loss, Hearing aids, Vertigo, Nasal pain, Nasal discharge, Nosebleeds, Nasal congestion, Sore throat, Hoarseness, Mouth lesions - Cardiovascular Cariovascular: denies: Irregular heart rate, Palpitations, Chest pain, Edema - Respiratory Respiratory: denies: Cough, Sputum production, Wheezing, Snoring, Hemoptysis, Orthopnea - Gastrointestinal Gastrointestinal: denies: Abdominal pain, Abdominal distention, Constipation, Diarrhea, Change in bowel habits, Rectal bleeding, Nausea, Vomiting, Bile emesis, Gallo blood emesis - Genitourinary Genitourinary: denies: Dysuria, Frequency, Urgency, Hematuria, Incontinence, Flank pain - Musculoskeletal Musculoskeletal: denies: Muscle pain, Muscle aches, Stiffness, Limited range of motion, Gout, Joint pain - Integumentary Integumentary: denies: Rash, Pruritis, Lumps, Acne, Hair changes, Other - Neurological Neurological: denies: General weakness, Focal weakness, Headache, Dizziness, Numbness - Psychiatric Psychiatric: denies: Depression, Anxiety, Suicidal, Delusions, Hallucinations - Endocrine Endocrine: denies: Polyuria, Polydypsia, Polyphagia, Intolerance to heat - Hematologic/Lymphatic Hematologic/Lymphatic: denies: Anemia, Bruising, Petechiae, Blood clots, Lymphadenopathy, Bleeding tendencies - All Other Systems All Other Systems: reports: Reviewed and negative Physical - Abdominal Exam Vital Signs: Temp Pulse Resp BP Pulse Ox 36.8 C 75 20 130/80 100 08/13/19 03:32 08/13/19 03:32 08/13/19 03:32 08/13/19 03:32 08/13/19 03:32 - Monitoring Strip Review: positive: Category I - Other Notes Labor Progress Note/Additional Text: Heart: Heart has a regular rate and rhythm without murmur Lungs: Lungs are clear to auscultation bilaterally without wheezes, rales or rub mecca Abdomen: The abdomen is soft, pliable and nontender. The uterus is soft and nontender between mild contractions occurring about every 7 minutes. There is a category 1 EFM noted. Pelvic: The cervix is posterior 75%/2/-2. It is soft.External genitalia revealed normal develop patterns. There is normal female escutcheon. Bartholin's Lozano's glands were unremarkable. The bladder and urethra are in the midline. The bladder is nontender. Extremities: Extremities are warm and dry without edema Neurologic: The patient is alert and oriented x3. Deep tendon reflexes are +2/4 bilaterally with respect to upper and lower extremities Psychiatric:The patient demonstrates good judgment mood and affect are within what is to be expected. Laboratory Results - last 24 hr 08/13/19 08/13/19 04:00 04:50 WBC 7.3 RBC 4.11 L Hgb 12.5 Hct 37.0 MCV 90.0 MCH 30.4 MCHC 33.8 RDW 13.2 Plt Count 270 MPV 11.9 H Neut # (Auto) 4.5 Lymph # (Auto) 2.0 [place] # (Auto) 0.7 Eos # (Auto) 0.1 Baso # (Auto) 0.0 Absolute Nucleated RBC 0.00 Nucleated RBC % 0.0 Membranes Rupture POSITIVE A Plan for Labor - Plan For Labor I expect patient to be DC'd or transferred within 96 hours.: Yes Plan for Labor: Impression: Intrauterine at 39 weeks 2 days gestation Latent phase labor Rupture of membranes Plan: Since the patient is having minimal contractions at this time we will start Pitocin augmentation. She is requesting an epidural and once we have adequate contractions established and cervical changes denoted we will allow an epidural to be placed. The usual labor orders are in place. We will follow her closely.
[2019-08-13] MEDS ORDERED: fentaNYL 100 MCG/2 ML VIAL IVP PRN (06:52)
[2019-08-13] MEDS ORDERED: ONDANSETRON 4 MG/2 ML VIAL IVP PRN ×3 (06:52→11:21)
[2019-08-13] MEDS ORDERED: OXYTOCIN/DEXTROSE 5 % 30 UNIT/500 ML BAG IV SCH (07:00)
[2019-08-13] MEDS: LACTATED RINGERS 1,000 ML IV SCH ×3 (07:09→14:29)
[2019-08-13] MEDS ORDERED: SODIUM CHLORIDE FLUSH 0.9% 10 ML SYRINGE IVP SCH (09:00)
--- NOTE | 2019-08-13 09:10 | PROVIDER PROGRESS NOTE ---
Labor Progress Note - Labor Progress Note Labor Progress Note/Additional Text: I was notified per nursing that patient had gotten up to go to the bathroom and there seemed to be a deceleration. When she got back to bed she began having variables with every deceleration. Her Pitocin has been turned off. Decelerations were noted with every contraction. These are mild with good fast return to baseline.Her cervix has been checked and found to be 4 cm dilated 90% effaced -2 station. It is mid anterior and very soft.A category 2 strip is noted. I talked to the patient about trying an amnio infusion to see if this will help to alleviate the problem of the variable decelerations.We discussed the risk, benefits, alternatives and complications of the procedure. Questions encouraged and answered. The patient understood and verbal consent was given. The amnioinfusion catheter was then advanced through the cervix. A test was made to be sure that the catheter was functioning. There is a good spike noted with contraction. We will therefore start the amnioinfusion per protocol. We will continue to follow her closely. She does know that if this does not work the next step may be a section.
[2019-08-13] MEDS ORDERED: ROPIVACAINE 0.2% 200 MG/100 ML BAG EP ONE (10:34)
--- NOTE | 2019-08-13 11:05 | PROVIDER PROGRESS NOTE ---
Labor Progress Note - Labor Progress Note Labor Progress Note/Additional Text: The variables seem to have dissipated. There is some evidence of head compression. There might be a variable component to it. A check of the cervix reveals it to be 6 cm dilated 100% effaced -2 station. The cervix is anterior.There is still a category 2 EFM noted however there is good reactivity.The patient does wish an epidural. We will allow him to be placed at this time. She is actually tolerating labor quite well at this time.We will continue to follow her closely.
--- NOTE | 2019-08-13 11:20 | ANESTHESIA ---
Pre-Anesthesia VS, & Labs - Diagnosis Active labor - Procedure Continuous labor epidural Vital Signs: Temp Pulse Resp BP Pulse Ox 36.8 C 75 20 130/80 100 08/13/19 03:32 08/13/19 03:32 08/13/19 03:32 08/13/19 03:32 08/13/19 03:32 Height 5 ft 5 in Weight (kg) 68.492 kg Body Mass Index 24.2 - NPO Other (Breakfast this am) - Is Patient ?: Yes - Lab Results Current Lab Results: Laboratory Tests 08/13/19 04:50: WBC 7.3, RBC 4.11 L, Hgb 12.5, Hct 37.0, MCV 90.0, MCH 30.4, MCHC 33.8, RDW 13.2, Plt Count 270, MPV 11.9 H, Neut # (Auto) 4.5, Lymph # (Auto ) 2.0, [place] # (Auto) 0.7, Eos # (Auto) 0.1, Baso # (Auto) 0.0, Absolute Nucleated RBC 0.00, Nucleated RBC % 0.0 Lab results reviewed: Yes Fish Bones: 08/13/19 04:50 Home Medications and Allergies Active Medications Fentanyl (Fentanyl) 50 mcg IVP Q1H PRN PRN Reason: PAIN Lactated Ringer's (Lr) 1,000 mls @ 150 mls/hr IV .Q6H40M [facility] Last Infusion: 08/13/19 11:04 Dose: 150 mls/hr OXYTOCIN/DEXTROSE 5 % (Pitocin/Dextrose 5%) 30 unit in 500 mls @ 1 mls/hr IV TITR FATEMEH; Protocol Last Titration: 08/13/19 09:54 Dose: 1 mls/hr Ondansetron HCl (Zofran Inj) 4 mg IVP Q4H PRN PRN Reason: Nausea / Vomiting Sodium Chloride (Normal Saline Flush 0.9%) 10 ml IVP PRN PRN PRN Reason: NEEDED PER PROVIDER ORDERS Last Admin: 08/13/19 07:09 Dose: 10 ml Sodium Chloride (Normal Saline Flush 0.9%) 10 ml IVP 0100,0900,1700 [facility] Allergies/Adverse Reactions: Allergies Allergy/AdvReac Type Severity Reaction Status Date / Time No Known Drug Allergies Allergy Verified 07/31/19 22:37 Anes History & Medical History - Anesthetic History Anesthesia Complications: reports: No previous complications Family history of Anesthesia Complications: Denies Family history of Malignant Hyperthermia: Denies - Medical History Cardiovascular: reports: None Pulmonary: reports: None Gastrointestinal: reports: None Urinary: reports: None, Kidney stones Neuro: reports: None Musculoskeletal: reports: None Endocrine/Autoimmune: reports: None Blood Disorders: reports: None Skin: reports: None Smoking Status: Never smoker Psychosocial: reports: No issues indicated - Obstetrical History : 1 Parity: 0 Events: positive: None Complications: positive: None Exam General: Alert, Oriented x3, Cooperative Dental: WNL Mouth Opening: Greater than 4 Fingerbreadths Neck Mobility: Normal Mallampati classification: I Thyromental Distance: greater than 6 cm Plan Anesthesia Type: General, Epidural Consent for Procedure(s) Verified and Reviewed: Yes Code Status: Attempt Resuscitation ASA classification: 2-Mild systemic disease Is this case an emergency?: Yes
[2019-08-13] MEDS ORDERED: diphenhydrAMINE INJ 50 MG/ML VIAL IVP PRN ×2 (11:21)
[2019-08-13] MEDS ORDERED: NALBUPHINE 10 MG/ML AMP IVP PRN ×2 (11:21)
[2019-08-13] MEDS ORDERED: METOCLOPRAMIDE 10 MG/2 ML VIAL IVP PRN (11:21)
[2019-08-13] MEDS ORDERED: LACTATED RINGERS 500 ML IV ONE (11:21)
[2019-08-13] MEDS ORDERED: ePHEDrine 50 MG/ML VIAL IVP PRN (11:21)
[2019-08-13] MEDS ORDERED: NALOXONE 0.4 MG/ML VIAL IVP PRN (11:21)
[2019-08-13] MEDS ORDERED: ROPIVACAINE 0.2% 200 MG/100 ML BAG EP PRN (11:23)
--- NOTE | 2019-08-13 12:45 | PROVIDER PROGRESS NOTE ---
Labor Progress Note - Labor Progress Note Labor Progress Note/Additional Text: The cervix is now 8 cm / 100%/-1. Contractions appear to be occurring every 4 to 5 minutes. She continues to make progress. There is now a category 1 EFM noted. The epidural is now in place and the patient is comfortable. We will continue to follow her closely.
[2019-08-13] MEDS ORDERED: OXYTOCIN/DEXTROSE 5 % 30 UNIT/500 ML BAG IV PRN (16:19)
[2019-08-13] MEDS ORDERED: MEASLES,MUMPS & RUBELLA VACC 0.5 ML VIAL SUBQ ONE (16:49)
[2019-08-13] MEDS ORDERED: LACTATED RINGERS 1,000 ML IV SCH (17:00)
--- NOTE | 2019-08-13 17:00 | DELIVERY NOTE ---
Delivery Note - Infant Delivery Method Infant Delivery Method: positive: Vacuum assist - Presentation Presentation: positive: Vertex, MATHIEU - left occiput anterior - Nuchal Cord Nuchal Cord: positive: None - Anesthetic Anesthetic: positive: Other (Lidocaine 2% with epinephrine) Volume: positive: 5cc - Amniotic Fluid Description Amniotic Fluid Description: positive: Moderate meconium - Vacuum Use Indication for Vacuum Use: positive: Suspicion of immediate or potential compromise Type of Vacuum Cup: positive: Cup: Rigid Vacuum Extraction: positive: Successful - Episiotomy Type Episiotomy Type: positive: None - Laceration Laceration: positive: Labial, Vaginal - Suture Suture Type: positive: Chromic Suture Size: positive: 2-0 - Delivery Outcome Delivery Outcome: positive: Livebirth - : positive: Placed in direct skin contact with mother, Suctioned, Bulb syringe sex: positive: Male : Apgars 8 and 9 - Cord Cord: positive: 3 vessels - Placenta Placenta: positive: Intact, Spontaneous - Estimated Blood Loss Estimated Blood Loss (in cc): 300 - Post Delivery Events Post Delivery Events: positive: No post delivery events - Delivery Comments (Free Text/Narrative) Delivery Comments (Free Text/Narrative): The patient did come to labor and delivery early in the morning of 08/13/2019 complaining of spontaneous rupture of membranes which occurred approximately 0130 hrs. She was having leakage of fluid which was clear. The fetus was reactive. She was only having contractions however every 6 to 7minutes after she been here for a few hours. A Pitocin drip was started however once it was started a category 2 strip was noted. The fetus was noted to have variable decelerations with every contraction. The Pitocin was turned off and the strip resolved from a category 2 to eventually back to a category 1.Because of the variables and amnioinfusion was was done. This helped the strip to resolve to the category 1. She then followed a normal multiparous labor curve after having an epidural placed and was found to be complete with respect to cervical dilatation at 1505 hrs. The fetus was at a 0 to +1 station at that point in time it was felt that the patient could labor down since the fetus was looking very good. She labor down over the next hour and at 1603hrs the fetus was now found to be at the +2 station and she began with expulsive Tory efforts. Delivery summary:The patient began pushing at approximately 16 03 hrs. She brought the fetus down very well. There is a heart tones were noted to be starting to drop again. The heart tones dropped into the 80s but then recovered back into the low 100s when she stopped pushing. As the fetus got down to a +3 station the heart tones dropped into the 70s and did not resolve. It was felt that a vacuum extraction should be accomplished at that time. The patient was informed of this and she gave verbal consent after we discussed the procedure. The over the next 20 seconds with 1 contraction the baby easily delivered. There was a cord noted which was around the right shoulder and around the babies arm on the right. Delivery of the took place at 1615 hrs.Once the baby was delivered the it was placed on the mother's chest the baby was crying lustily and moving all 4 limbs. After 1 minute the cord was then doubly clamped and cut. The father of the baby cut the cord. A sample of the cord blood was then obtained and sent for evaluation. The placenta was then delivered intact with 3 vessels at 16 19 hrs.30 units Pitocin IV drip were given at that time.The cervix and vaginal vault were then inspected. The cervix was intact. The uterus was karthik down firmly. Lochia was light. There was a tear along the left lateral vaginal sulci which went back approximately 3 cm and then the laceration went up into the left labia. There was a similar tear on the right side though this only went back 2 cm and was very superficial. The left wound was bleeding quite heavily. Both wounds were enough size with 2% lidocaine with epinephrine. They were rendered hemostatic using 0 chromic suture. These were repaired in the usual fashion.The left laceration bruised a little more and this was rendered hemostatic with 2 [id number] sutures of 0 chromic suture.Uterus again continued to contract down firmly. The again is a viable male whose weight is pending at the present time. He had Apgars of 8 9 at 1 and 5 minutes respectively. Both the and the patient were allowed to remain in the LDRP both in satisfactory condition. Estimated blood loss was 300 mL's.
[2019-08-13] MEDS ORDERED: LIDOCAINE 1%-EPI 1:100000 20 ML MDV SUBQ ONE (17:06)
[2019-08-13] MEDS: IBUPROFEN 600 MG TABLET PO SCH ×2 (17:58→23:28)
[2019-08-13] MEDS: ACETAMINOPHEN 500 MG TABLET PO SCH (17:58)
[2019-08-13] MEDS: DOCUSATE SODIUM 100 MG CAPSULE PO SCH (20:46)
[2019-08-13] MEDS: HYDROcod/ACETAM 5/325 MG TABLET PO PRN (23:58)
[2019-08-14] MEDS: HYDROcod/ACETAM 5/325 MG TABLET PO PRN ×2 (04:26→21:42)
[2019-08-14] MEDS: IBUPROFEN 600 MG TABLET PO SCH ×3 (06:27→18:33)
[2019-08-14] MEDS: ACETAMINOPHEN 500 MG TABLET PO SCH ×2 (08:22→16:41)
[2019-08-14] MEDS: DOCUSATE SODIUM 100 MG CAPSULE PO SCH ×2 (08:23→21:37)
--- NOTE | 2019-08-14 09:35 | PROVIDER PROGRESS NOTE ---
Subjective - Prog Note Date Prog Note Date: 08/14/19 Prog Note Time: 09:33 - Subjective Subjective: The patient is doing very well this morning. She states her lochia is light to moderate at most. She is really without any complaint. She is ablating well and tolerating diet well. She is voiding without difficulty. Objective - Vital Signs/Intake & Output Reviewed Vital Signs: Yes Vital Signs: Vital Signs x48h Temp Pulse Resp BP Pulse Ox 08/14/19 08:11 36.6 C 84 18 123/76 100 08/14/19 03:59 36.6 C 76 20 117/72 100 Intake & Output: Intake & Output 08/11/19 08/12/19 08/13/19 08/14/19 23:59 23:59 23:59 23:59 Intake Total 4783.250 500 Output Total 2775 700 Balance 2008.250 -200 - Lab Results Fish Bones: 08/13/19 04:50 - Other Results/Comments Other Results/Comments: Abdomen: The uterus is firm and nontender 2 fingerbreadths below the umbilicus. Laceration: The laceration is clean and dry without signs of infection. It is well approximated. Assessment/Plan - Problem List (1) Normal delivery at term Impression: day #1: Stable Plan: We will continue with the present plan of care. As long she does well discharge is anticipated tomorrow morning.
[2019-08-15] MEDS: IBUPROFEN 600 MG TABLET PO SCH ×2 (00:13→09:07)
[2019-08-15] MEDS: ACETAMINOPHEN 500 MG TABLET PO SCH ×2 (00:14→09:07)
--- NOTE | 2019-08-15 07:51 | PROVIDER PROGRESS NOTE ---
Subjective - Prog Note Date Prog Note Date: 08/15/19 Prog Note Time: 07:48 - Subjective Subjective: The patient is doing very well this morning. She is breast-feeding well and ambulating well. She is voiding without difficulty. She is tolerating diet we ll.She states her lochia is light. Objective - Vital Signs/Intake & Output Vital Signs: Vital Signs x48h Temp Pulse Resp BP Pulse Ox 08/15/19 06:14 98.1 C H 84 16 112/66 99 08/15/19 00:41 36.6 C 75 16 116/73 99 Intake & Output: Intake & Output 08/12/19 08/13/19 08/14/19 08/15/19 23:59 23:59 23:59 23:59 Intake Total 4783.250 500 Output Total 2775 700 Balance 2007.250 -200 - Lab Results Fish Bones: 08/13/19 04:50 - Other Results/Comments Other Results/Comments: Abdomen: The abdomen is soft, pliable and nontender. The uterus is firm and nontender 1 to 2 fingerbreadths below the umbilicus. Lacerations: The lacerations are clean and dry and well approximated. No signs of infection are appreciated. No edema is appreciated. Assessment/Plan - Problem List (1) Normal delivery at term Impression: day #2: Stable Plan: The patient will be discharged home. She was discharged home with both written and verbal instructions such as: 1. No lifting, tampons douching or intercourse. 2. She is to report any temperatures greater than 100.4 or heavy vaginal bleeding 3. She is to continue her vitamins and increase her fluids 4. She is to use ibuprofen 600 mg p.o. 3 times daily PRN for pain. 5. She is not to drive a car for the next 2 weeks 6. As long as she does well she will be seen in the office in 1 week for her initial visit.. She will be seen in the office in 6 weeks for her full visit.
--- NOTE | 2019-08-15 08:25 | DISCHARGE SUMMARY ---
Physician: Evelio Sanchez DO DATE OF ADMISSION: 08/13/2019 DATE OF DISCHARGE: 08/15/2019 ADMITTING DIAGNOSES 1. Intrauterine at 39 weeks 2 days' gestation. 2. Latent phase labor. 3. Rupture of membranes. DISCHARGE DIAGNOSES: Delivery at 39 weeks 2 days' gestation. Introital laceration PROCEDURES: Vacuum-assisted vaginal delivery. Repair of Laceration LABORATORIES: Admitting CBC revealed WBC of 4.11, hemoglobin 12.5, hematocrit 37.0 with 270 platelets. HOSPITAL COURSE: Patient was admitted to Labor and Delivery early in the morning of 08/13/2019. She had experienced rupture of membranes at home at approximately 0130 hours with clear fluid. She was having some period- like cramping, but nothing more than that. When she presented to the OB department, she was 1 cm dilated and 60% effaced. She had some occasional variable decelerations and amnioinfusion was performed on her. This did clear the variables. She went on to be complete, with respect to cervical dilatation at approximately 1505 hours. An epidural was in place. She could not feel contractions, and therefore, did not start with expulsive efforts until 1603 hours. She went on to deliver a viable male over superficial vaginal and labial lacerations. A vacuum assist was performed because as she was pushing the fetus down, the heart tones dropped into the 70s without any recovery. Vacuum delivery took place over one contraction when the fetus was now at the +3 station. One is referred to the delivery note for full details. The patient recovered quite well. On her first day, she was ambulating well and tolerating diet well. Lochia was light to moderate. Uterus was firm, 1-2 fingerbreadths below the umbilicus. She was voiding without difficulty. On her second day, she continued to do quite well. Vital signs were stable. She was afebrile. Lochia was light. The uterus was firm, and still 1-2 fingerbreadths below the umbilicus. It was nontender. The lacerations were clean and dry without any signs of infection. They were well approximated. No edema was appreciated. It was felt that the patient was stable to be safely discharged home. The patient was discharged to home with both written and verbal instructions, which included such things as: 1. She is to avoid any lifting, tampons, douching or intercourse. 2. She is to report any temperatures greater than 100.4 or heavy vaginal bleeding. 3. She is to continue her vitamins and increase her fluids. 4. She is to use ibuprofen 600 mg p.o. 3 times a day p.r.n. for pain. 5. She is not to drive a car for the next 2 weeks. 6. As long as she does well, she will be seen in the office in 1 week and in 6 weeks for her full visit. TD: 08/15/2019 08:00 MTDClive
[2019-08-15] MEDS ORDERED: MEASLES,MUMPS & RUBELLA VACC 0.5 ML VIAL SUBQ ONE (09:00)
[2019-08-15] MEDS: DOCUSATE SODIUM 100 MG CAPSULE PO SCH (09:07)
[2019-08-15 16:54] VITALS: BP 131/76
--- NOTE | 2019-08-15 16:59 | Labor Flowsheet ---
Labor Flowsheet Datetime Report Generated by CPN: 08/15/2019 16:58 Datetime: 08/15/2019 13:56 VITAL SIGNS NBP Sys/Mindy/Mean (mmHg): 131 : 76 : 89 Pulse: 91 LaborFlag: Labor Datetime: 08/15/2019 07:59 SpO2 (%): 100 Datetime: 08/13/2019 16:20 Respirations: 20 Temperature (C): 36.8 Datetime: 08/13/2019 16:19 Stage 2 Comments: 1619 Datetime: 08/13/2019 16:09 Pushing Position: Pushing with Contractions Pushing Progress: Descent with Pushing; Perineal Bulging; Presenting Part Visible Datetime: 08/13/2019 16:03 STAGE 2 Pushing: Coached on Pushing Datetime: 08/13/2019 15:45 UTERINE ACTIVITY Monitor Mode: Internal Frequency (min): 1.5-4 Quality: Moderate Duration (sec): 60-120 Pattern: Normal: <= 5 Contractions in 10 Minutes Resting Tone (Palpate): Relaxed Resting Tone IUP (mmHg): 0 Intensity IUP (mmHg): 65 [place] Units (mmHg): 240 ASSESSMENT A Monitor Mode: External US FHR Baseline Rate : 125 Variability: Moderate 6-25 bpm Accelerations: 15X15 Decelerations: None Category: Category I Oxygen Method: Room Air Datetime: 08/13/2019 15:05 VAGINAL EXAM Dilatation (cm): 10.0 Effacement (%): 100 Station: 1 Exam by: Dr Sanchez Vaginal Bleeding: Normal Show Cervix, Consistency: Soft Cervix, Position: Anterior Vaginal Exam Comments: Plan to labor down for 1 hour Datetime: 08/13/2019 15:00 Monitor Interventions for FHR: Ultrasound Adjusted Datetime: 08/13/2019 14:45 Comments: Tele unit battery Datetime: 08/13/2019 14:30 PATIENT CARE IV/Blood Work: IV Bag Number @ 3 Datetime: 08/13/2019 13:44 Contraction Comments: IUPC not capturing contractions well Datetime: 08/13/2019 13:31 COMMUNICATION Communication: Provider at Bedside Provider Notified (Name): Dr Daniel Communication Comments: updated to SVE and prolonged decel. Datetime: 08/13/2019 13:27 Hygiene: Michelle Care Patient Care Comments: 235 mls fluid, blue chux changed Datetime: 08/13/2019 13:25 Procedures: Sterile Vag Exam Patient Position/Activity: Right Lateral Datetime: 08/13/2019 12:45 ANESTHESIA Anesthesia Plans: Epidural Anesthesia Level Check: T10- Umbilicus Datetime: 08/13/2019 12:44 PAIN Pain Scale: 0 Pain Presence: None/Denies Pain Type: N/A Datetime: 08/13/2019 12:07 Membrane Comments: 109 mls of fluid out and chux changed I/O Interventions: Medrano Cath Inserted Datetime: 08/13/2019 11:45 Pain Location: Abdomen Pain Relief Measures: Epidural Given; HEARING THERAPIST Use Pain Coping: Talking Through Contractions Pain Assessment Comments: Used HEARING THERAPIST button on epidural Comfort Measures: Breathing/Relaxation Datetime: 08/13/2019 11:44 Epidural Procedure Other: Single Dose Anesthesia Comments: Used HEARING THERAPIST button to dose epidural as pain increased with this last contraction. Datetime: 08/13/2019 11:15 Pitocin Checklist: Uterus Palpates Soft between Contractions; IUPC Resting Tone less than 25 mmHg Datetime: 08/13/2019 10:58 Epidural Procedure: Loading Dose Datetime: 08/13/2019 10:38 PROCEDURE TIME OUT Procedure Verify: Correct Patient Identity; Accurate Procedure Consent Form; Agreement on Procedure to be Done; Correct Patient Position; Addressed Need to Administer Antibiotics or Fluids for Irrigat ion Epidural Positioning: Sitting Datetime: 08/13/2019 10:18 MEDICATIONS Pitocin (milliunits): Discontinued Datetime: 08/13/2019 09:30 Stage of : Labor Datetime: 08/13/2019 09:00 Monitor Interventions for UA: IUPC Inserted Datetime: 08/13/2019 08:25 Medication Comments: Not increasing Pitocin at this time as EFM with a broken tracing and ? of prol alexandro decel while up to the bathroom Datetime: 08/13/2019 07:48 Membranes Ruptured Date/Time: 08/13/2019 01:50 Membranes Rupture Method: Spontaneous Amniotic Fluid Color: Clear Amniotic Fluid Amount: Small Amniotic Fluid Odor: Normal Datetime: 08/13/2019 07:11 Temperature Route: Oral Datetime: 08/13/2019 05:48 TEACHING Instructional Method: Verbal Plan of Care: Plan of Care Discussed; Vaginal Delivery; Labor Unit Routine: Flushing to Room; Call Healy; Bed; Unit Personnel; Monitoring Labor/Induction: Activity Pain Management: IV Narcotics; Epidural; Pain Scale/Goals; Comfort Measures Related: Nutrition; Hydration; Activity and Rest
== END 2019-08-15 14:00 | disposition home or self-care (01) | DRG 806 ==
LOC: WFO 03:18 → FBP 03:19 → WFO 04:14 → FBP 04:15
PROVIDERS: ADMIT Obstetrics & Gynecology; ATTEND Obstetrics & Gynecology
PROC: 10D07Z6 Extraction of Products of Conception, Vacuum, Via Natural or Artificial Opening (ICD-10-PCS; principal; 2019-08-13)
PROC: 0UQG7ZZ Repair Vagina, Via Natural or Artificial Opening (ICD-10-PCS; 2019-08-13)
PROC: 3E0E7GC Introduction of Other Therapeutic Substance into Products of Conception, Via Natural or Artificial Opening (ICD-10-PCS; 2019-08-13)
DX: O76 Abnormality in fetal heart rate and rhythm complicating labor and delivery (principal); O71.4 Obstetric high vaginal laceration alone; Z37.0 Single live birth; O77.0 Labor and delivery complicated by meconium in amniotic fluid; O69.9XX0 Labor and delivery complicated by cord complication, unspecified, not applicable or unspecified; Z3A.39 39 weeks gestation of pregnancy
CPT/HCPCS: 84112; 85025; 99213; A9270; J7120

== ENCOUNTER 2020-04-26 10:01 | Emergency (ER) | payer OTHER ==
[2020-04-26 10:09] VITALS: BP 109/68
--- NOTE | 2020-04-26 11:41 | ED Physician Documentation ---
PD HPI HEENT - Stated complaint Stated Complaint: LT EAR PX - Chief complaint Chief Complaint: Heent - History obtained from History obtained from: Patient, Family - History of Present Illness Timing - onset: How many days ago (22) Timing - duration: Days Timing - details: Gradual onset, Still present Location: Left ear Worsens: Other (touching the ear) Associated symptoms: No: Fever, Congestion, Rhinorrhea, Trismus, Facial swelling, Headache, Cough Similar symptoms before: Has not had sx before Recently seen: Not recently seen - Additional information Additional information: Previously well 40-year-old female is developed some pain in her left ear she denies any cough she denies any fever she has not had this previously. Review of Systems Constitutional: denies: Fever Eyes: denies: Decreased vision Ears: reports: Ear pain. denies: Loss of hearing, Drainage/discharge, Tinnitus/ringing Nose: denies: Rhinorrhea / runny nose, Congestion Throat: reports: Oral lesions / sores (bit side of mouth), Sore throat. denies: Dental pain / toothache Cardiac: denies: Chest pain / pressure, Palpitations Respiratory: denies: Dyspnea, Cough GI: denies: Nausea, Vomiting : denies: Dysuria, Hesitancy PD PAST MEDICAL HISTORY - Past Medical History Cardiovascular: None Respiratory: None Neuro: None Endocrine/Autoimmune: None GI: None VEGETABLE VENDOR: None : None, Kidney stones HEENT: None Psych: None Musculoskeletal: None Derm: None - Past Surgical History Past Surgical History: No - Present Medications Home Medications: Ambulatory Orders Medication Instructions Recorded Confirmed Neomyc/Colist/Hydrocort/Thonzn 4 drops LEFTEAR TID #10 ml 04/26/20 [Cortisporin-Tc Ear Suspension] - Allergies Allergies/Adverse Reactions: Allergies Allergy/AdvReac Type Severity Reaction Status Date / Time No Known Drug Allergies Allergy Verified 04/26/20 10:09 - Social History Does the pt smoke?: No Smoking Status: Never smoker PD ED PE NORMAL - Vitals Vital signs reviewed: Yes - General General: Alert and oriented X 3, No acute distress, Well developed/nourished - HEENT HEENT: Atraumatic, PERRL, EOMI, Moist mucous membranes, Pharynx benign, Dentition benign, Other (There is tenderness to the left pinna and there is tenderness to introduction of the speculum in the ear. TM is clear bilat. ) - Neck Neck: Supple, no meningeal sign - Cardiac Cardiac: RRR, No murmur - Respiratory Respiratory: No respiratory distress, Clear bilaterally - Abdomen Abdomen: Soft, Non tender - Back Back: No CVA TTP, No spinal TTP - Derm Derm: Normal color, Warm and dry, No rash - Extremities Extremities: No deformity, No edema - Neuro Neuro: Alert and oriented X 3, nuclear security officer 2-12 intact, No motor deficit, No sensory deficit, Normal speech Eye Opening: Spontaneous Motor: Obeys Commands Verbal: Oriented GCS Score: 15 - Psych Psych: Normal mood, Normal affect Results - Vitals Vitals: Vital Signs - 24 hr 04/26/20 10:07 Temperature 36.7 C Heart Rate 87 Respiratory 16 Rate Blood Pressure 109/68 O2 Saturation 99 Oxygen O2 Source Room air PD MEDICAL DECISION MAKING - ED course Complexity details: considered differential, d/w patient, d/w family ED course: 40-year-old female with what appears to be a otitis externa appears mild and I have instructed the patient to expect to have rapid improvement and not to have progression of symptoms or development of new symptoms such as cough or fever as this would be a reason for return Departure - Departure Disposition: 01 Home, Self Care Clinical Impression: Otitis externa Qualifiers: Otitis externa type: unspecified type Chronicity: acute Laterality: left Qualified Code(s): H60.502 - Unspecified acute noninfective otitis externa, left ear Condition: Stable Instructions: ED Otitis Externa Follow-Up: BETITO BAZZI MD [Primary Care Provider] - Prescriptions: Neomyc/Colist/Hydrocort/Thonzn [Cortisporin-Tc Ear Suspension] 4 drops LEFTEAR TID #10 ml
== END 2020-04-26 12:02 | disposition home or self-care (01) ==
LOC: ED 10:01
DX: H60.502 Unspecified acute noninfective otitis externa, left ear (principal)
CPT/HCPCS: 99282; 99284

== ENCOUNTER 2021-07-19 08:00 | Outpatient (CLI) | payer OTHER | END 2021-07-19 23:59 | disposition home or self-care (01) | LOC: LAB 08:00 | PROVIDERS: ATTEND Physician Assistant Medical | DX: R05.3 Chronic cough (principal); Z20.822 Contact with and (suspected) exposure to COVID-19 ==